=== PATIENT | female | born 1980 | race Caucasian/White ===

== ENCOUNTER 2017-07-07 22:06 | Emergency (ER) | payer OTHER ==
[~2017-07-07] VITALS: Ht 152.4 cm; Wt 57.6 kg
== END 2017-07-07 22:57 | disposition home or self-care (01) ==
LOC: ED 22:06
DX: F41.9 Anxiety disorder, unspecified (principal); I10 Essential (primary) hypertension; F32.9 Major depressive disorder, single episode, unspecified; Z87.891 Personal history of nicotine dependence; Z59.0 Homelessness; Z88.2 Allergy status to sulfonamides; Z88.8 Allergy status to other drugs, medicaments and biological substances
CPT/HCPCS: 99283